=== PATIENT | male | born 1995 | race Two or more races ===

== ENCOUNTER 2025-02-28 12:44 | Emergency (ER) | payer OTHER ==
[~2025-02-28] VITALS: Ht 175.3 cm; Wt 77.1 kg
[2025-02-28] MEDS ORDERED: ORPHENADRINE CITRATE 30 MG/ML AMPUL IM ONE (14:00)
[2025-02-28] MEDS ORDERED: ORPHENADRINE CITRATE 30 MG/ML AMPUL ONE (14:25)
== END 2025-02-28 16:37 | disposition home or self-care (01) ==
LOC: ER 13:00
DX: S49.81XA Other specified injuries of right shoulder and upper arm, initial encounter (principal); V49.88XA Car occupant (driver) (passenger) injured in other specified transport accidents, initial encounter; Y93.89 Activity, other specified; Y92.89 Other specified places as the place of occurrence of the external cause; Y99.8 Other external cause status
CPT/HCPCS: 70450; 72125; 96372; 99284; J2360